=== PATIENT | male | born 1985 | race Caucasian/White ===

== ENCOUNTER 2020-09-25 03:03 | Emergency (ER) | payer SELFPAY ==
[~2020-09-25] VITALS: Ht 172.7 cm; Wt 81.6 kg
[2020-09-25 03:04] VITALS: BP 135/81
--- NOTE | 2020-09-25 03:07 | NUR ---
KATHRIN DUNNE TO YOU. [facility] AT BEDSIDE.
--- NOTE | 2020-09-25 03:13 | NUR ---
PT REFUSES TDAP VACCINE. ERMD MADE AWARE.
--- NOTE | 2020-09-25 03:14 | NUR ---
no nursing interventions needed.
[2020-09-25 03:15] VITALS: BP 135/81
--- NOTE | 2020-09-25 03:15 | NUR ---
Patient discharged with v/s stable. Written and verbal after care instructions given and explained. Patient verbalized understanding. In police custody. All questions addressed prior to discharge. Advised to follow up with PMD.
--- NOTE | 2020-09-25 03:18 | NUR ---
Note marianna in EDM - 09/25/20 at 0320 by MED Patient discharged with v/s stable. Written and verbal after care instructions given and explained. Patient verbalized understanding. In police custody. All questions addressed prior to discharge. Advised to follow up with PMD.
== END 2020-09-25 03:15 ==
LOC: MED 03:03
DX: S51.812A Laceration without foreign body of left forearm, initial encounter (principal); Z02.89 Encounter for other administrative examinations; Z98.890 Other specified postprocedural states; W25.XXXA Contact with sharp glass, initial encounter; Y93.89 Activity, other specified; Y92.89 Other specified places as the place of occurrence of the external cause; Y99.8 Other external cause status
CPT/HCPCS: 12001; 90715; 99283